=== PATIENT | female | born 1995 | race American Indian/Alaskan Native ===

== ENCOUNTER 2016-11-08 11:26 | Emergency (ER) | payer OTHER ==
[2016-11-08 13:46] LABS: Basophils % (Auto) 0.6 % (0.0-1.8); Eosinophils % (Auto) 6.1 % (0.0-4.3); Hematocrit 37.4 % (30.3-42.9); Hemoglobin 12.5 gm/dl (10.1-14.3); Mean Corpuscular HGB Conc 33 % (30-34); Mean Corpuscular Hemoglobin 28 pg (28-32); Mean Corpuscular Volume 85 fl (79-97); Platelet Count 193 K/mm3 (140-440); Red Blood Count 4.42 M/mm3 (3.65-5.03); Red Cell Distribution Width 12.3 % (13.2-15.2); White Blood Count 6.8 K/mm3 (4.5-11.0)
[2016-11-08 13:54] LABS: Alanine Aminotransferase 9 units/L (7-56); Albumin 4.3 g/dL (3.9-5); Albumin/Globulin Ratio 1.2 %; Alkaline Phosphatase 47 units/L (35-129); Anion Gap 14 mmol/L; BUN/Creatinine Ratio 23; Blood Urea Nitrogen 9 mg/dL (7-17); Carbon Dioxide 25 mmol/L (22-30); Chloride 102.1 mmol/L (98-107); Glucose 79 mg/dL (65-100); Lipase 36 units/L (13-60); Potassium 3.4 mmol/L (3.6-5.0); Sodium 138 mmol/L (137-145)
--- NOTE | 2016-11-08 17:10 | Emergency Department Report ---
HPI - General Chief Complaint: Abdominal Pain Time Seen by Provider: 11/08/16 16:56 - HPI HPI: This is a 21-year-old female who presents to the emergency department with complaint of lower abdominal and/or pelvic pain has been going on for "a while" but worsened since she had a hysterosalpingogram last week. She had that procedure done as they are trying to get and the EQUITY H[facility]DER wanted to make sure that the tubes were open. She has some dysuria since the procedure but denies any hematuria. She denies any fever, vaginal bleeding or discharge, back pain, nausea, vomiting. She has not taken anything for her symptoms prior to presentation. The primary care physician is a Dr. Avi Fabian. ED Past Medical Hx - Past Medical History Previous Medical History?: No - Surgical History Past Surgical History?: No - Social History Smoking Status: Never Smoker Substance Use Type: None ED Review of Systems ROS: Stated complaint: ABDOMINAL PAIN, PAINFUL WHILE URINATING Other details as noted in HPI Comment: All other systems reviewed and negative Constitutional: denies: chills, fever Eyes: denies: eye pain, eye discharge, vision change ENT: denies: ear pain, throat pain Respiratory: denies: cough, shortness of breath, wheezing Cardiovascular: denies: chest pain, palpitations Gastrointestinal: abdominal pain. denies: nausea, vomiting Genitourinary: dysuria. denies: hematuria, discharge Musculoskeletal: denies: back pain, joint swelling, arthralgia Skin: denies: rash, lesions Neurological: denies: headache, weakness, paresthesias Physical Exam - Physical Exam Vital Signs: Vital Signs 11/08/16 11/08/16 12:45 16:41 Temperature 98.5 F Pulse Rate 84 Respiratory 18 16 Rate Blood Pressure 114/65 O2 Sat by Pulse 97 Oximetry Physical Exam: GENERAL: The patient is well-developed well-nourished. HENT: Normocephalic. Atraumatic. Patient has moist mucous membranes. EYES: Extraocular motions are intact. Pupils equal reactive to light bilaterally. NECK: Supple. Trachea is midline. CHEST/LUNGS: Clear to auscultation. There is no respiratory distress noted. HEART/CARDIOVASCULAR: Regular. There is no tachycardia. There is no gallop rub or murmur. ABDOMEN: Abdomen is soft. There is mild lower quadrant abdominal and upper pelvic discomfort to palpation. No guarding rebound tenderness. No peritoneal signs. Patient has normal bowel sounds. There is no abdominal distention. SKIN: Skin is warm and dry. NEURO: The patient is awake, alert, and oriented. The patient is cooperative. The patient has no focal neurologic deficits. The patient has normal speech and gait. MUSCULOSKELETAL: There is no tenderness or deformity. There is no limitation range of motion. There is no evidence of acute injury. ED Course Vital Signs 11/08/16 11/08/16 12:45 16:41 Temperature 98.5 F Pulse Rate 84 Respiratory 18 16 Rate Blood Pressure 114/65 O2 Sat by Pulse 97 Oximetry ED Medical Decision Making - Lab Data Result diagrams: 11/08/16 13:12 11/08/16 13:12 - Radiology Data Radiology results: report reviewed, image reviewed interpreted by me: Abdominal x-ray shows a large amount of nonspecific bowel gas but there is some area of mild dilation and loop of bowel seen. PROCEDURE: ULTRASOUND TRANSABDOMINAL AND TRANSVAGINAL TECHNIQUE: Real-time transabdominal sonography in multiple planes of the pelvis was performed. The pelvic structures, especially the ovaries were not optimally visualized. Transvaginal sonography was then performed to better evaluate the structures and/or abnormalities described below with image documentation. Limited Doppler to evaluate the ovaries/adnexa. CPT 93514 and 22393 HISTORY: Pelvic pain. Recent hysterosalpingogram COMPARISON: No prior studies are available for comparison. FINDINGS: UTERUS Size: 7.0 x 4.1 x 5.3 centimeters. Endometrial thickness: 7.3 millimeters. Orientation: anteverted. Cervix: Normal. Fibroids/masses: None. RIGHT Ovary: 5.2 x 4.0 x 4.1 centimeters. Appearance: 4.63 x 3.42 centimeter hypoechoic area with subtle dependent echogenicity in the right ovary. In this lesion there is a frond like exophytic projection without vascularity, measuring 3.06 x 1.87 x 2.62 centimeters (transabdominal images). Normal flow. LEFT Ovary: 3.5 x 2.4 x 2.5 cm. Appearance: Small hypoechoic area measuring 1.9 centimeters. Similar hypoechoic area measuring 1.7 centimeters. Normal flow. Pelvic fluid: Minimal free pelvic fluid. Other: Bladder appears normal. IMPRESSION: Normal uterus and endometrium. Complex right ovarian hypoechoic lesion with frond like exophytic projection. Consider complex ovarian cyst. Cannot exclude underlying mass lesion. Consider short-term followup pelvic ultrasound in 6 weeks with re-evaluation at this time. Also consider MRI for further characterization if there is continued clinical concern for cystic mass lesion and if patient has no contraindication MRI. Also recommend correlation with beta HCG, ectopic cannot be completely excluded although felt to be less likely; this appears to be ovarian and there does not appear to be vascularity in this region. Small hypoechoic areas in the left ovary, likely small follicles. Trace free pelvic fluid. EXAM: CT ABDOMEN PELVIS W CON HISTORY: Abd pain TECHNIQUE: Serial axial images through the abdomen and pelvis with coronal and sagittal reconstruction. Intravenous administration of 100 milliliters Omnipaque 300 PRIORS: Endovaginal ultrasound from 11/08/2016. FINDINGS: There is a 1.6 millimeter subpleural nodule in the lateral aspect of the left lung base. No pleural effusion is seen. The liver, gallbladder, pancreas, spleen and adrenal glands appear within normal limits. Kidneys appear normal. Aorta is normal in caliber. Bladder appears normal. Uterus appears normal. Complex right ovarian cyst is re-identified. This measures up to 5.1 centimeters in diameter. There is a hyperdense region extending into the lumen of the inferior aspect of the cyst. Small amount of low-density free fluid is seen in the dependent portion of the pelvis. Appendix appears normal. No gross bowel abnormality is identified. No acute osseous abnormality is identified. IMPRESSION: 1. There is a complex right ovarian cyst that measures 5.1 centimeters in diameter. Continued follow-up is recommended as stated in the report from the ultrasound from 11/08/2016, as neoplastic process is not excluded and cysts of this size increased risk of ovarian torsion. 2. Small amount of low-density free fluid is seen in the dependent portion of the pelvis. This is a nonspecific finding. It may be physiologic. - Medical Decision Making 21-year-old female presents with acute on chronic lower abdominal and pelvic discomfort that started after she had a recent hysterosalpingogram. Labs are unremarkable. Patient is not . There is no urinary tract infection. Transvaginal ultrasound was done that did not show any torsion but does show a complex right sided ovarian cyst. Abdominal x-ray appeared suspicious as there was some dilated loops of bowel. For this reason, as well as to further evaluate the ovarian complex cyst and rule out appendicitis, a CT of the abdomen and pelvis with IV contrast was done. CT showed a 5.1 cm complex right ovarian cyst. 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 She did not want any prescription for pain medication at this time. They will return to the ER for any worsening of her symptoms or any acute distress. Vital signs stable. - Differential Diagnosis , ovarian torsion, ovarian cyst, malignancy, fibroids Critical Care Time: No Critical care attestation.: If time is entered above; I have spent that time in minutes in the direct care of this critically ill patient, excluding procedure time. ED Disposition Clinical Impression: Pelvic pain, Complex cyst of right ovary Disposition: TO HOME OR SELFCARE Is pt being admited?: No Condition: Stable Instructions: Ovarian Cyst (ED), Chronic Pelvic Pain in Women (ED) Additional Instructions: Please follow up with an EQUITY H[facility]DER in the next few days regarding your ovarian cyst. Return to the emergency Department with any worsening of your symptoms or any acute distress. Referrals: PRIMARY CARE, [Primary Care Provider] - 3-5 Days [facility] [Provider Group] - 3-5 Days [facility] [Provider Group] - 3-5 Days [facility] [Provider Group] - 3-5 Days Time of Disposition: 20:53
[2016-11-08 17:39] LABS: Bacteria,Urine 1+ /HPF (Negative); Bilirubin,Urine NEG (Negative); Blood,Urine NEG (Negative); Ketones,Urine NEG (Negative); Leukocyte Esterase,Urine NEG (Negative); Nitrite,Urine NEG (Negative); Protein,Urine <15 mg/dL mg/dL (Negative); Urobilinogen,Urine < 2.0 mg/dL (<2.0); WBC,Urine < 1.0 /HPF (0.0-6.0)
--- NOTE | 2016-11-08 18:34 | Ultrasound Report ---
FINAL REPORT PROCEDURE: ULTRASOUND TRANSABDOMINAL AND TRANSVAGINAL TECHNIQUE: Real-time transabdominal sonography in multiple planes of the pelvis was performed. The pelvic structures, especially the ovaries were not optimally visualized. Transvaginal sonography was then performed to better evaluate the structures and/or abnormalities described below with image documentation. Limited Doppler to evaluate the ovaries/adnexa. CPT 94349 and 41910 HISTORY: Pelvic pain. Recent hysterosalpingogram COMPARISON: No prior studies are available for comparison. FINDINGS: UTERUS Size: 7.0 x 4.1 x 5.3 centimeters. Endometrial thickness: 7.3 millimeters. Orientation: anteverted. Cervix: Normal. Fibroids/masses: None. RIGHT Ovary: 5.2 x 4.0 x 4.1 centimeters. Appearance: 4.63 x 3.42 centimeter hypoechoic area with subtle dependent echogenicity in the right ovary. In this lesion there is a frond like exophytic projection without vascularity, measuring 3.06 x 1.87 x 2.62 centimeters (transabdominal images). Normal flow. LEFT Ovary: 3.5 x 2.4 x 2.5 cm. Appearance: Small hypoechoic area measuring 1.9 centimeters. Similar hypoechoic area measuring 1.7 centimeters. Normal flow. Pelvic fluid: Minimal free pelvic fluid. Other: Bladder appears normal. IMPRESSION: Normal uterus and endometrium. Complex right ovarian hypoechoic lesion with frond like exophytic projection. Consider complex ovarian cyst. Cannot exclude underlying mass lesion. Consider short-term followup pelvic ultrasound in 6 weeks with re-evaluation at this time. Also consider MRI for further characterization if there is continued clinical concern for cystic mass lesion and if patient has no contraindication MRI. Also recommend correlation with beta HCG, ectopic cannot be completely excluded although felt to be less likely; this appears to be ovarian and there does not appear to be vascularity in this region. Small hypoechoic areas in the left ovary, likely small follicles. Trace free pelvic fluid. For
--- NOTE | 2016-11-08 20:37 | Cat Scan Report ---
FINAL REPORT EXAM: CT ABDOMEN PELVIS W CON HISTORY: Abd pain TECHNIQUE: Serial axial images through the abdomen and pelvis with coronal and sagittal reconstruction. Intravenous administration of 100 milliliters Omnipaque 300 PRIORS: Endovaginal ultrasound from 11/08/2016. FINDINGS: There is a 1.6 millimeter subpleural nodule in the lateral aspect of the left lung base. No pleural effusion is seen. The liver, gallbladder, pancreas, spleen and adrenal glands appear within normal limits. Kidneys appear normal. Aorta is normal in caliber. Bladder appears normal. Uterus appears normal. Complex right ovarian cyst is re-identified. This measures up to 5.1 centimeters in diameter. There is a hyperdense region extending into the lumen of the inferior aspect of the cyst. Small amount of low-density free fluid is seen in the dependent portion of the pelvis. Appendix appears normal. No gross bowel abnormality is identified. No acute osseous abnormality is identified. IMPRESSION: 1. There is a complex right ovarian cyst that measures 5.1 centimeters in diameter. Continued follow-up is recommended as stated in the report from the ultrasound from 11/08/2016, as neoplastic process is not excluded and cysts of this size increased risk of ovarian torsion. 2. Small amount of low-density free fluid is seen in the dependent portion of the pelvis. This is a nonspecific finding. It may be physiologic.
[2016-11-08 20:45] VITALS: BP 102/59
[2016-11-08] MEDS ORDERED: NORCO 5/325 ONE (21:07)
[2016-11-08] MEDS ORDERED: NORCO 5/325 PO ONE (21:09)
--- NOTE | 2016-11-09 08:29 | XRay Report ---
ABDOMEN TWO VIEWS: 11/08/16 18:15:00 CLINICAL: Abdominal pain. COMPARISON:None. FINDINGS: Supine upright views demonstrate a normal bowel gas pattern. A large volume of stool in the right colon, moderate stool in the transverse and descending colon and a large volume of stool in the rectum. Minimal small bowel dilatation and no air-fluid level. No mass or suspicious calcifications. The bones and soft tissues are normal. IMPRESSION: Negative abdomen.
== END 2016-11-08 21:10 | disposition home or self-care (01) ==
LOC: ED 11:26
DX: N83.201 Unspecified ovarian cyst, right side (principal); R10.2 Pelvic and perineal pain
CPT/HCPCS: 36415; 74020; 74177; 76830; 80053; 81001; 83690; 84703; 85025; 93975; 99284; Q9967